=== PATIENT | male | born 1955 | race Caucasian/White ===

== ENCOUNTER 2016-06-21 17:06 | Inpatient (IN) ==
--- NOTE | 2016-06-21 17:16 | Emergency Department Note ---
Disposition Clinical Impression: Type 2 diabetes mellitus, uncontrolled Qualifiers: Diabetes mellitus complication status: without complication Diabetes mellitus director of logistics insulin use: without chcf use Qualified Code(s): E11.65 - Type 2 diabetes mellitus with hyperglycemia Disposition: Admitted As Inpatient Condition: Good Referrals: Shavonne Jenkins PRIVATE PILOT [Primary Care Provider] - Forms: Work/School Release, ED Satisfaction Letter Time of Disposition: 18:22 General Adult HPI - General Chief complaint: ED General Medical Stated complaint: high blood suger Time Seen by Provider: 06/21/16 17:10 Source: patient Mode of arrival: EMS Limitations: no limitations Nursing Notes Reviewed: Yes Vital Signs Reviewed: Yes - History of Present Illness HPI Narrative: 61-year-old white male transported by ambulance from his physician's office with an elevated blood sugar. He states his blood sugars been high for several days. He is a known diabetic on oral agents. He admits to being noncompliant with his diet, and states he has been eating "a lot of cookies and thinks that I am not supposed to be eating". No vomiting. No fever. No recent illness. He has been urinating frequently for the last week. His vision is chronically blurred but is no worse than usual. Onset (ago): day(s) (2) Pain Scale: 0 Worsens with: nothing Associated symptoms: Reports: denies other symptoms Treatments Prior to Arrival: none - Related Data Home Medications Medication Instructions Recorded Confirmed Fluticasone/Salmeterol [Advair 1 each IH QDPC 11/11/15 11/11/15 250-50 Diskus] Loratadine [Claritin] 10 mg PO DAILY 11/11/15 11/11/15 Metformin [Glucophage] 500 mg PO BIDWM 11/11/15 11/11/15 Amlodipine [Norvasc] 5 mg PO DAILY 06/21/16 06/21/16 CloNIDine HCl [Kapvay] 0.1 mg PO BID 06/21/16 06/21/16 Hydrochlorothiazide 25 mg PO DAILY 06/21/16 06/21/16 Previous Rx's Medication Instructions Recorded Lisinopril [Zestril] 40 mg PO DAILY #60 tablet 11/12/15 Warfarin [Coumadin] 7.5 mg PO DAILY@1800 #45 tablet 11/12/15 Allergies Allergy/AdvReac Type Severity Reaction Status Date / Time Penicillins [PCN] Allergy Rash Verified 11/09/15 12:08 All systems ED: reviewed and negative except as stated. Constitutional: Denies: fever, chills Eyes: Reports: vision change (Blurred vision chronic) ENT ED: Denies: ear pain, throat pain Cardiovascular: Denies: chest pain, palpitations Respiratory: Denies: cough, dyspnea Gastrointestinal: Denies: abdominal pain, nausea, vomiting Genitourinary: Reports: frequency. Denies: urgency, dysuria, hematuria Musculoskeletal: Denies: back pain Neurological: Reports: weakness. Denies: numbness, paresthesias Past Medical History - Past Medical History Medical history: Reports: diabetes, hypertension, valvular heart disease Surgical history: Reports: cataract, heart valve replacement Psychiatric history: Reports: anxiety - Social History Smoking Status: Former smoker Smokeless Tobacco Status: No Alcohol use: Reports: none Drug use: Reports: none Physical Exam - General Limitations: no limitations General appearance: alert, in no apparent distress, other (Thin emaciated) - Head Head exam: atraumatic, normocephalic - Eye Eye exam: Present: PERRL, EOMI. Absent: scleral icterus, conjunctival injection - ENT ENT exam: normal oropharynx, mucous membranes moist, TM's normal bilaterally - Neck Neck exam: Present: normal inspection, full ROM, trachea midline. Absent: lymphadenopathy - Chest Chest inspection: Present: normal inspection, symmetric chest wall rise - Respiratory Respiratory exam: Present: normal lung sounds bilaterally. Absent: respiratory distress, wheezes - Cardiovascular Cardiovascular exam: Present: regular rate, normal rhythm, normal heart sounds - Abdominal Exam Abdominal exam: Present: soft, Non-Tender, normal bowel sounds. Absent: organomegaly, mass - Extremities Exam Extremities exam: Present: normal inspection, full ROM, normal capillary refill. Absent: pedal edema, calf tenderness - Back Exam Back exam: Present: normal inspection. Absent: CVA tenderness (R), CVA tenderness (L) - Neurological Exam Neurological exam: Present: alert, oriented X3. Absent: motor sensory deficit - Psychiatric Psychiatric exam: Present: normal affect, normal mood - Skin Skin exam: Present: warm, dry, intact. Absent: cyanosis, diaphoresis Course - Reevaluation(s) Reevaluation #1: IV fluids were initiated on presentation. His blood sugar is now back. It is 750. His potassium is mildly elevated. I am going to give him 10 units of regular insulin IV. I will continue hydration. Because of the blood sugar level he will require observation, continued hydration and control of his blood sugars. I will contact the hospitalist to discuss observation admission. Time: 17:56 Reevaluation #2: Discussed with Dr. Treviño. He accepts the patient for admission. Time: 18:21 Vital Signs Temperature 98.4 F 06/21/16 17:08 Pulse Rate 79 06/21/16 17:08 Respiratory Rate 16 06/21/16 17:08 Blood Pressure 161/96 06/21/16 17:08 O2 Sat by Pulse Oximetry 100 06/21/16 17:08 Temperature 98.4 F 06/21/16 17:08 Pulse Rate 79 06/21/16 17:08 Respiratory Rate 16 06/21/16 17:08 Blood Pressure 161/96 06/21/16 17:08 O2 Sat by Pulse Oximetry 100 06/21/16 17:08 Oxygen Delivery Oxygen Delivery Room Air Medical Decision Making - Lab Data Result diagrams: 06/21/16 17:30 06/21/16 17:30 Lab Results 06/21/16 06/21/16 06/21/16 Range/Units 17:10 17:12 17:13 WBC (4.3-11.1) K/mcL RBC (4.19-5.50) M/mcL Hgb (12.9-16.9) g/dL Hct (37.5-50.1) % MCV (83.0-100.0) fL MCH (28.0-33.3) pg MCHC (31.6-35.5) g/dL RDW (11.5-14.5) % Plt Count (140-400) K/mcL MPV (9.4-12.4) fL Immature Gran % (0-4) % Seg Neutrophils % % Lymphocytes % % Monocytes % % Eosinophils % % Basophils % % Neutrophils # (1.6-8.9) K/mcL Lymphocytes # (0.6-4.6) K/mcL Monocytes # (0.0-1.3) K/mcL Eosinophils # (0.0-0.6) K/mcL Basophils # (0.0-0.2) K/mcL VBG pH 7.40 (7.32-7.42) pH Units VBG pCO2 47 (41-51) mmHg VBG pO2 29.2 (25-40) mmHg VBG HCO3 29.4 H (21-27) mEq/L Sodium (136-145) mEq/L Potassium (3.5-4.5) mEq/L Chloride (98-109) mEq/L Carbon Dioxide (19-29) mEq/L BUN (8-26) mg/dL Creatinine (0.72-1.25) mg/dL Est GFR ( Amer) (> 60) Est GFR (Non-Af Amer) (> 60) BUN/Creatinine Ratio (6-26) Glucose (70-99) mg/dL POC Glucose > 600 H* > 600 H* (58-89) Calculated Osmolality (280-300) Calcium (8.6-10.8) mg/dL Total Bilirubin (0.2-1.2) mg/dL AST (5-34) Units/L ALT (0-55) Units/L Alkaline Phosphatase (38-126) Units/L Troponin I (0-0.03) ng/mL Serum Total Protein (6.0-8.3) g/dL Albumin (3.5-5.0) g/dL Globulin (2.4-3.5) g/dL Albumin/Globulin Ratio (1.1-2.2) Beta-Hydroxybutyric Acd (0.02-0.27) mmol/L Urine Color (Yellow) Urine Clarity (Clear) Urine pH (5.0-8.0) pH Units Ur Specific [place] (1.010-1.025) Urine Protein (Neg-Trace) mg/dL Urine Glucose (UA) (Normal) mg/dL Urine Ketones (Negative) mg/dL Urine Blood (Negative) Urine Nitrite (Negative) Urine Bilirubin (Negative) Urine Urobilinogen (Normal) mg/dL Ur Leukocyte Esterase (Negative) Urine Microscopic RBC (0-3) per hpf Urine Microscopic WBC (0-3) per hpf Ur Squamous Epith Cells (None-Few) per lpf Ur Culture Indicated? (NO) 06/21/16 06/21/16 06/21/16 Range/Units 17:30 17:30 17:30 WBC 7.6 (4.3-11.1) K/mcL RBC 3.40 L (4.19-5.50) M/mcL Hgb 10.8 L (12.9-16.9) g/dL Hct 31.5 L (37.5-50.1) % MCV 92.6 (83.0-100.0) fL MCH 31.8 (28.0-33.3) pg MCHC 34.3 (31.6-35.5) g/dL RDW 13.3 (11.5-14.5) % Plt Count 283 (140-400) K/mcL MPV 10.4 (9.4-12.4) fL Immature Gran % 0.4 (0-4) % Seg Neutrophils % 78.4 % Lymphocytes % 13.8 % Monocytes % 6.6 % Eosinophils % 0.3 % Basophils % 0.5 % Neutrophils # 6.0 (1.6-8.9) K/mcL Lymphocytes # 1.1 (0.6-4.6) K/mcL Monocytes # 0.5 (0.0-1.3) K/mcL Eosinophils # 0.0 (0.0-0.6) K/mcL Basophils # 0.0 (0.0-0.2) K/mcL VBG pH (7.32-7.42) pH Units VBG pCO2 (41-51) mmHg VBG pO2 (25-40) mmHg VBG HCO3 (21-27) mEq/L Sodium 126 L (136-145) mEq/L Potassium 4.8 H (3.5-4.5) mEq/L Chloride 85 L (98-109) mEq/L Carbon Dioxide 27 (19-29) mEq/L BUN 22 (8-26) mg/dL Creatinine 1.57 H (0.72-1.25) mg/dL Est GFR ( Amer) 55 L (> 60) Est GFR (Non-Af Amer) 45 L (> 60) BUN/Creatinine Ratio 14 (6-26) Glucose 725 H* (70-99) mg/dL POC Glucose (58-89) Calculated Osmolality 300 (280-300) Calcium 9.5 (8.6-10.8) mg/dL Total Bilirubin 0.4 (0.2-1.2) mg/dL AST 55 H (5-34) Units/L ALT 60 H (0-55) Units/L Alkaline Phosphatase 113 (38-126) Units/L Troponin I 0.03 (0-0.03) ng/mL Serum Total Protein 7.0 (6.0-8.3) g/dL Albumin 3.5 (3.5-5.0) g/dL Globulin 3.5 (2.4-3.5) g/dL Albumin/Globulin Ratio 1.0 L (1.1-2.2) Beta-Hydroxybutyric Acd 0.46 H (0.02-0.27) mmol/L Urine Color (Yellow) Urine Clarity (Clear) Urine pH (5.0-8.0) pH Units Ur Specific [place] (1.010-1.025) Urine Protein (Neg-Trace) mg/dL Urine Glucose (UA) (Normal) mg/dL Urine Ketones (Negative) mg/dL Urine Blood (Negative) Urine Nitrite (Negative) Urine Bilirubin (Negative) Urine Urobilinogen (Normal) mg/dL Ur Leukocyte Esterase (Negative) Urine Microscopic RBC (0-3) per hpf Urine Microscopic WBC (0-3) per hpf Ur Squamous Epith Cells (None-Few) per lpf Ur Culture Indicated? (NO) 06/21/16 Range/Units 17:37 WBC (4.3-11.1) K/mcL RBC (4.19-5.50) M/mcL Hgb (12.9-16.9) g/dL Hct (37.5-50.1) % MCV (83.0-100.0) fL MCH (28.0-33.3) pg MCHC (31.6-35.5) g/dL RDW (11.5-14.5) % Plt Count (140-400) K/mcL MPV (9.4-12.4) fL Immature Gran % (0-4) % Seg Neutrophils % % Lymphocytes % % Monocytes % % Eosinophils % % Basophils % % Neutrophils # (1.6-8.9) K/mcL Lymphocytes # (0.6-4.6) K/mcL Monocytes # (0.0-1.3) K/mcL Eosinophils # (0.0-0.6) K/mcL Basophils # (0.0-0.2) K/mcL VBG pH (7.32-7.42) pH Units VBG pCO2 (41-51) mmHg VBG pO2 (25-40) mmHg VBG HCO3 (21-27) mEq/L Sodium (136-145) mEq/L Potassium (3.5-4.5) mEq/L Chloride (98-109) mEq/L Carbon Dioxide (19-29) mEq/L BUN (8-26) mg/dL Creatinine (0.72-1.25) mg/dL Est GFR ( Amer) (> 60) Est GFR (Non-Af Amer) (> 60) BUN/Creatinine Ratio (6-26) Glucose (70-99) mg/dL POC Glucose (58-89) Calculated Osmolality (280-300) Calcium (8.6-10.8) mg/dL Total Bilirubin (0.2-1.2) mg/dL AST (5-34) Units/L ALT (0-55) Units/L Alkaline Phosphatase (38-126) Units/L Troponin I (0-0.03) ng/mL Serum Total Protein (6.0-8.3) g/dL Albumin (3.5-5.0) g/dL Globulin (2.4-3.5) g/dL Albumin/Globulin Ratio (1.1-2.2) Beta-Hydroxybutyric Acd (0.02-0.27) mmol/L Urine Color Light Yellow (Yellow) Urine Clarity Cloudy A (Clear) Urine pH 7.0 (5.0-8.0) pH Units Ur Specific [place] 1.015 (1.010-1.025) Urine Protein Negative (Neg-Trace) mg/dL Urine Glucose (UA) >=1000 H (Normal) mg/dL Urine Ketones Negative (Negative) mg/dL Urine Blood Trace-intact H (Negative) Urine Nitrite Negative (Negative) Urine Bilirubin Negative (Negative) Urine Urobilinogen Normal (Normal) mg/dL Ur Leukocyte Esterase Small H (Negative) Urine Microscopic RBC 0-3 (0-3) per hpf Urine Microscopic WBC 30-50 H (0-3) per hpf Ur Squamous Epith Cells None Seen (None-Few) per lpf Ur Culture Indicated? YES A (NO) - EKG Data EKG #1 EKG attestation: Yes I reviewed and interpreted this EKG. EKG results narrative: Sinus rhythm, rate of 64, age undetermined septal infarct, lateral T wave inversion consistent with ischemia. Rhythm strip shows sinus rhythm with a rate of 64, P a Holter milliseconds, QRS 112 ms with no other ectopy as interpreted by me. Compared to a tracing dated 11/09/15, no significant change.
[2016-06-21] MEDS: 0.9 % Sodium Chloride 1,000 ML IVC SCH ×4 (17:22→19:37)
[2016-06-21 17:36] LABS: Basophils % 0.5 %; Eosinophils % 0.3 %; Hematocrit 31.5 % (37.5-50.1); Hemoglobin 10.8 g/dL (12.9-16.9); Immature Granulocytes % 0.4 % (0-4); Lymphocytes # 1.1 K/mcL (0.6-4.6); Lymphocytes % 13.8 %; Mean Corpuscular HGB Conc 34.3 g/dL (31.6-35.5); Mean Corpuscular Hemoglobin 31.8 pg (28.0-33.3); Mean Corpuscular Volume 92.6 fL (83.0-100.0); Mean Platelet Volume 10.4 fL (9.4-12.4); Monocytes # 0.5 K/mcL (0.0-1.3); Monocytes % 6.6 %; Platelet Count 283 K/mcL (140-400); Red Cell Distribution Width 13.3 % (11.5-14.5); Segmented Neutrophils % 78.4 %
[2016-06-21 17:42] LABS: Beta-Hydroxybutyric Acid 0.46 mmol/L (0.02-0.27)
[2016-06-21 17:44] LABS: VBG HCO3 29.4 mEq/L (21-27); VBG PH 7.4 pH Units (7.32-7.42); VBG PO2 29.2 mmHg (25-40)
[2016-06-21 17:45] LABS: Bilirubin,Urine Negative (Negative); Blood,Urine Trace-intact (Negative); Clarity,Urine Cloudy (Clear); Glucose,Urine (UA) >=1000 mg/dL (Normal); Ketones,Urine Negative (Negative); Leukocyte Esterase,Urine Small (Negative); Nitrite,Urine Negative (Negative); Protein,Urine Negative (Neg-Trace); Specific Gravity,Urine 1.015 (1.010-1.025); Urobilinogen,Urine Normal (Normal)
[2016-06-21 17:50] LABS: Color,Urine Light Yellow (Yellow)
[2016-06-21 17:54] LABS: Albumin 3.5 g/dL (3.5-5.0); Bilirubin,Total 0.4 mg/dL (0.2-1.2); Calcium 9.5 mg/dL (8.6-10.8); Globulin 3.5 g/dL (2.4-3.5); Potassium 4.8 mEq/L (3.5-4.5)
[2016-06-21 17:56] LABS: RBC,Urine 0-3 per hpf (0-3); WBC,Urine 30-50 per hpf (0-3)
[2016-06-21] MEDS ORDERED: Insulin Human Regular 10 UNIT in 0.9 % Sodium Chloride 10 ML IV ONE ×2 (17:56→19:04)
[2016-06-21 17:57] LABS: Squamous Epithelial Cell,Urine None Seen per lpf (None-Few)
[2016-06-21] MEDS ORDERED: D5% in Water 1,000 ML IV PRN (18:39)
[2016-06-21] MEDS ORDERED: Ondansetron ODT 4 MG TAB.RAPDIS SL PRN (18:39)
[2016-06-21] MEDS ORDERED: Dextrose Gel 15 GM PO PRN ×2 (18:39)
[2016-06-21] MEDS ORDERED: Naloxone 0.4 MG/ML INJ IVP PRN (18:39)
[2016-06-21] MEDS ORDERED: *HR* Dextrose 50 % in Water (Syg) 50 ML SYRINGE IVP PRN (18:39)
[2016-06-21 18:48] LABS: INR 1.2; Prothrombin Time 13.4 Seconds (9.4-12.1)
[2016-06-21 20:44] LABS: Estimated Average Glucose > 355 mg/dl; Hemoglobin A1C >= 14.1 %
[2016-06-22] MEDS: 0.9 % Sodium Chloride 1,000 ML IVC SCH ×2 (02:26→13:05)
[2016-06-22] MEDS: Insulin LISPRO 300 UNITS/3 ML VIAL SQ SCH ×3 (07:41→18:28)
[2016-06-22] MEDS ORDERED: *HR* Metformin 500 MG TABLET PO SCH (08:00)
[2016-06-22] MEDS ORDERED: Loratadine 10 MG TABLET PO SCH (09:00)
[2016-06-22] MEDS ORDERED: Lisinopril 20 MG TABLET PO SCH (09:00)
--- NOTE | 2016-06-22 09:04 | Electrocardiograph Report ---
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
[2016-06-22] MEDS ORDERED: Budesonide/Formoterol 80/4.5 MDI IH SCH ×2 (10:00→22:00)
--- NOTE | 2016-06-22 11:33 | Internal Med History&Physical ---
Date of Encounter: 06/22/16 Time of Encounter: 11:00 Assessment and Plan (1) Type 2 diabetes mellitus, uncontrolled Current visit: Yes Status: Acute He has been started on IV insulin. Glucophage will be held because of renal insufficiency. Accu-Cheks with SSI will be given with basal insulin started. Qualifiers: Diabetes mellitus complication status: with kidney complications Diabetes mellitus complication detail: with chronic kidney disease Diabetes mellitus long term care pharmacist insulin use: without long term care pharmacist use Chronic kidney disease stage: stage 3 (moderate) Qualified Code(s): E11.22 - Type 2 diabetes mellitus with diabetic chronic kidney disease; E11.65 - Type 2 diabetes mellitus with hyperglycemia; N18.3 - Chronic kidney disease, stage 3 (moderate) (2) Anemia Current visit: Yes Status: Acute Will order anemia testing in a.m. Qualifiers: Anemia type: unspecified type Qualified Code(s): D64.9 - Anemia, unspecified (3) Hyponatremia Current visit: Yes Status: Acute Suspect pseudohyponatremia from hyperglycemia. We will IV fluids and monitor blood sugars. Recheck labs in a.m. (4) Azotemia Current visit: Yes Status: Acute Hold lisinopril and hydrochlorothiazide. Will give IV fluids and recheck labs in a.m. (5) Elevated transaminase level Current visit: Yes Status: Acute Recheck labs in a.m. (6) UTI (urinary tract infection) Current visit: Yes Status: Acute We will order urine culture and start Cipro empirically Qualifiers: Urinary tract infection type: site unspecified Hematuria presence: without hematuria Qualified Code(s): N39.0 - Urinary tract infection, site not specified (7) H/O mechanical aortic valve replacement Current visit: No Status: Chronic We will give therapeutic dose of Lovenox every 12 hours until INR therapeutic. Internal Medicine - H&P: HPI Chief complaint: Hyperglycemia Admitted From: Home Plans for Post Hospital Care: Home History of present illness: Mr. Wheeler is a 61 year old male who was sent from his PCP office to emergency room because of hyperglycemia. He reports his blood sugar readings had been "high" on his home meter for several days. In the emergency room his blood sugar was found to be 725 mg percent. He was admitted to [facility] floor for ongoing care needs. He was diagnosed with DM 2 in 2012. He admits he has not been following his diet closely and has been eating a large amount of fruit. The emergency room record also reported he had been eating cookies. Endocrine history is pertinent otherwise for hyperlipidemia but available archived records show no lipid profile. He denies thyroid disease. Past Med Surg Social Fam HX - Past Medical History Medical history: COPD, diabetes, hypertension, valvular heart disease, other Psychiatric history: anxiety - Past Surgical History Surgical History: cataract, heart valve replacement, other - Social History Smoking Status: Former smoker Smokeless Tobacco Status: No Alcohol use: none Drug use: none Internal Medicine - H&P: Meds Fluticasone/Salmeterol [Advair 250-50 Diskus] 1 each IH QDPC 11/11/15 [History] Loratadine [Claritin] 10 mg PO DAILY 11/11/15 [History] Metformin [Glucophage] 500 mg PO BIDWM 11/11/15 [History] Lisinopril [Zestril] 40 mg PO DAILY #60 tablet 11/12/15 [Rx] Warfarin [Coumadin] 7.5 mg PO DAILY@1800 #45 tablet 11/12/15 [Rx] Amlodipine [Norvasc] 5 mg PO DAILY 06/21/16 [History] CloNIDine HCl [Kapvay] 0.1 mg PO BID 06/21/16 [History] Hydrochlorothiazide 25 mg PO DAILY 06/21/16 [History] Allergies Penicillins [PCN] Allergy (Verified 11/09/15 12:08) Rash All Systems PM: A 10-system review of systems was performed and is negative for pertinent findings except as documented above in the HPI. Review of systems: Review of systems from his October 2015 [facility] hospitalization were reviewed and revised as below Gen.: His weight has decreased from 65.771 kg at October 2015 hospitalization to admission weight of 53.977 kg at present Cardiovascular: Has history of hypertension but denies [place] heart failure DVT or pulmonary embolus. He had mechanical valve placement 2002 and is on lifelong Coumadin. He claims he had a heart catheter 2002 which was unremarkable. Respiratory: He smoked from age [age] up to 1-1/2 packs per day. He has a diagnosis COPD. He claims he has asthma. He does not use home oxygen. GI: Denies disorders of his liver gallbladder or exocrine pancreas : Denies hematuria dysuria or kidney stones Neurologic: He denies large distribution strokes or seizures Endocrine: As per history of present illness. Hematology/oncology: He denies blood disorders cancers or anemia Psychiatric: He denies anxiety depression or other mental health issues [place] skeletal: Denies arthritis gout or other bone joint or muscle disorders. - Constitutional Vitals: Temp Pulse Resp BP Pulse Ox 97.5 F L 55 14 110/65 98 06/22/16 10:51 06/22/16 10:51 06/22/16 10:51 06/22/16 10:51 06/22/16 10:51 Exam: Gen.: He is a well-developed lean male who appears in no severe distress at present time. HEENT: Head is atraumatic and normocephalic. Eyes: EOMI. There is no scleral icterus. Mouth: Mucosa is moist. Neck: Supple and nontender. There is no thyromegaly or adenopathy noted. Heart: Regular without murmurs gallops or ectopics.: Mechanical valve sounds are heard. Lungs: No wheezes or crackles are heard. Abdomen: Soft and nontender. No masses or guarding are noted. Extremities: There is no cyanosis edema or clubbing noted. Dorsalis pedis and posterior tibial pulses are trace palpable bilaterally. Neurologic: Mental status: He is talkative and a good historian. Cranial nerves : Smile is symmetric. Forehead wrinkles bilaterally. Tongue protrudes midline. EOMI. Motor: There is no pronator drift. Cerebellar: Finger to nose is intact bilaterally. Skin: Warm and or Internal Med - H&P Results - Labs CBC & Chem 7: 06/21/16 17:30 06/21/16 17:30 - VTE Reasons for not Prescribing Prophylaxis: Not indicated-Anticoagulated or INR therapeutic
[2016-06-22] MEDS ORDERED: Insulin DETEMIR 100 UNIT/ML X5UNITS SQ SCH (12:00)
[2016-06-22] MEDS ORDERED: *HR* Enoxaparin 80 MG/0.8 ML SYRINGE SQ SCH (12:00)
[2016-06-22] MEDS: *HR* Warfarin 5 MG TABLET PO SCH (18:28)
[2016-06-22] MEDS: *HR* Enoxaparin 100 MG/ML SYRINGE SQ SCH (18:31)
[2016-06-22] MEDS: Insulin DETEMIR 100 UNIT/ML X5UNITS SQ SCH (20:11)
[2016-06-23] MEDS: 0.9 % Sodium Chloride 1,000 ML IVC SCH ×2 (00:06→08:29)
[2016-06-23 05:42] LABS: Basophils # 0.1 K/mcL (0.0-0.2); Basophils % 0.8 %; Eosinophils # 0.2 K/mcL (0.0-0.6); Eosinophils % 2.1 %; Hematocrit 29.7 % (37.5-50.1); Hemoglobin 9.9 g/dL (12.9-16.9); Immature Granulocytes % 0.5 % (0-4); Lymphocytes # 1.9 K/mcL (0.6-4.6); Lymphocytes % 24.4 %; Mean Corpuscular HGB Conc 33.3 g/dL (31.6-35.5); Mean Corpuscular Volume 93.1 fL (83.0-100.0); Mean Platelet Volume 10.4 fL (9.4-12.4); Monocytes # 0.7 K/mcL (0.0-1.3); Neutrophils # 4.8 K/mcL (1.6-8.9); Platelet Count 276 K/mcL (140-400); Red Blood Count 3.19 M/mcL (4.19-5.50); Red Cell Distribution Width 13.6 % (11.5-14.5); Segmented Neutrophils % 63.2 %
[2016-06-23 06:00] LABS: Alanine Aminotransferase 49 Units/L (0-55); Albumin 2.8 g/dL (3.5-5.0); Alkaline Phosphatase 82 Units/L (38-126); Aspartate Amino Transferase 43 Units/L (5-34); BUN/Creatinine Ratio 20 (6-26); Bilirubin,Total 0.2 mg/dL (0.2-1.2); Blood Urea Nitrogen 18 mg/dL (8-26); Calcium 8.9 mg/dL (8.6-10.8); Carbon Dioxide 22 mEq/L (19-29); Chloride 104 mEq/L (98-109); Globulin 2.8 g/dL (2.4-3.5); Glucose 71 mg/dL (70-99); Magnesium 1.9 mg/dL (1.6-2.6); Osmolality,Calculated 286 (280-300); Potassium 3.6 mEq/L (3.5-4.5); Sodium 138 mEq/L (136-145); Total Protein 5.6 g/dL (6.0-8.3); eGFR For African Americans > 60 (> 60); eGFR For Non-African Americans > 60 (> 60)
[2016-06-23 06:13] LABS: INR 1.2; Prothrombin Time 13.1 Seconds (9.4-12.1)
[2016-06-23] MEDS: *HR* Enoxaparin 100 MG/ML SYRINGE SQ SCH ×2 (06:56→17:47)
[2016-06-23] MEDS: Insulin LISPRO 300 UNITS/3 ML VIAL SQ SCH ×2 (07:58→09:22)
[2016-06-23] MEDS: Insulin DETEMIR 100 UNIT/ML X5UNITS SQ SCH (09:16)
[2016-06-23 09:37] LABS: % Iron Saturation 22 % (20-55); Iron 46 mcg/dL (65-175); Transferrin 152 mg/dL (174-364)
--- NOTE | 2016-06-23 10:20 | Internal Med Progress Note ---
Date of Encounter: 06/23/16 Time of Encounter: 10:10 - Assessment and plan (1) Type 2 diabetes mellitus, uncontrolled Current Visit: Yes Status: Acute Assessment and plan: June 23. Blood sugars are significantly improved. Restart Glucophage since azotemia has resolved and add low-dose glimepiride. Continue Accu-Cheks with SSI. Qualifiers: Diabetes mellitus complication status: with kidney complications Diabetes mellitus complication detail: with chronic kidney disease Diabetes mellitus extermination supervisor insulin use: without retirement use Chronic kidney disease stage: stage 3 (moderate) Qualified Code(s): E11.22 - Type 2 diabetes mellitus with diabetic chronic kidney disease; E11.65 - Type 2 diabetes mellitus with hyperglycemia; N18.3 - Chronic kidney disease, stage 3 (moderate) (2) Anemia Current Visit: Yes Status: Acute Assessment and plan: June 23. Anemia testing is pending Qualifiers: Anemia type: unspecified type Qualified Code(s): D64.9 - Anemia, unspecified (3) Hyponatremia Current Visit: Yes Status: Acute Assessment and plan: June 23. Resolved with normalization of blood sugar. (4) Azotemia Current Visit: Yes Status: Acute Assessment and plan: June 23. Resolved. Remain off lisinopril and HCTZ. We will discontinue IV fluids. (5) Elevated transaminase level Current Visit: Yes Status: Acute Assessment and plan: June 23. Resolving. Continue present management (6) UTI (urinary tract infection) Current Visit: Yes Status: Acute Assessment and plan: June 23. Urine culture showed mixed organisms. We will not continue antibiotics after discharge. Qualifiers: Urinary tract infection type: site unspecified Hematuria presence: without hematuria Qualified Code(s): N39.0 - Urinary tract infection, site not specified (7) H/O mechanical aortic valve replacement Current Visit: No Status: Chronic Assessment and plan: June 23. Continue Lovenox and Coumadin with monitoring of INR. - Subjective Interval history: June 23. He has no new complaints and feels better - Constitutional Vitals: Temp Pulse Resp BP Pulse Ox 98.3 F 54 16 117/74 99 06/23/16 07:05 06/23/16 07:05 06/23/16 07:05 06/23/16 07:05 06/23/16 07:05 Exam: He is resting comfortably in bed. His affect is bright and cheerful. I reviewed his medications and lab results. Internal Medicine: Result - Labs CBC & Chem 7: 06/23/16 04:23 06/23/16 04:23 Labs: Short CBC 06/23/16 Range/Units 04:23 WBC 7.6 (4.3-11.1) K/mcL Hgb 9.9 L (12.9-16.9) g/dL Hct 29.7 L (37.5-50.1) % Plt Count 276 (140-400) K/mcL Neutrophils # 4.8 (1.6-8.9) K/mcL BMP 06/23/16 04:23 Sodium 138 D Potassium 3.6 D Chloride 104 D Carbon Dioxide 22 BUN 18 Creatinine 0.88 Glucose 71 Calcium 8.9 Liver Function 06/23/16 Range/Units 04:23 Total Bilirubin 0.2 (0.2-1.2) mg/dL AST 43 H (5-34) Units/L ALT 49 (0-55) Units/L Alkaline Phosphatase 82 (38-126) Units/L Albumin 2.8 L (3.5-5.0) g/dL - ABG Interpretation ABG results: PT/INR, D-dimer PT 13.1 Seconds (9.4-12.1) H 06/23/16 04:23 - VTE Reasons for not Prescribing Prophylaxis: Not indicated-Anticoagulated or INR therapeutic Consult Discharge Plan - Plan Referrals: Shavonne Jenkins, DIGITAL ADVERTISING ANALYST [Primary Care Provider] - 1 week
[2016-06-23 10:23] LABS: Ferritin 290 ng/ml (22-275)
[2016-06-23 10:39] LABS: Folate 9.3 ng/mL (7.0-31.4)
[2016-06-23] MEDS: *HR* Glimepiride 2 MG TABLET PO SCH (11:51)
[2016-06-23] MEDS: *HR* Metformin 500 MG TABLET PO SCH (15:43)
[2016-06-23] MEDS: *HR* Warfarin 5 MG TABLET PO SCH (17:44)
[2016-06-24] MEDS: *HR* Enoxaparin 100 MG/ML SYRINGE SQ SCH (05:39)
[2016-06-24 07:22] VITALS: BP 155/98
[2016-06-24 07:55] LABS: Basophils # 0.1 K/mcL (0.0-0.2); Basophils % 0.8 %; Eosinophils # 0.2 K/mcL (0.0-0.6); Eosinophils % 3.3 %; Hematocrit 30.7 % (37.5-50.1); Hemoglobin 10.4 g/dL (12.9-16.9); Immature Granulocytes % 0.9 % (0-4); Lymphocytes # 1.8 K/mcL (0.6-4.6); Lymphocytes % 27.3 %; Mean Corpuscular HGB Conc 33.9 g/dL (31.6-35.5); Mean Corpuscular Hemoglobin 31.7 pg (28.0-33.3); Mean Corpuscular Volume 93.6 fL (83.0-100.0); Mean Platelet Volume 10.2 fL (9.4-12.4); Monocytes # 0.5 K/mcL (0.0-1.3); Monocytes % 7.8 %; Neutrophils # 3.9 K/mcL (1.6-8.9); Platelet Count 281 K/mcL (140-400); Red Blood Count 3.28 M/mcL (4.19-5.50); Segmented Neutrophils % 59.9 %
[2016-06-24 07:56] LABS: INR 1.3; Prothrombin Time 14.4 Seconds (9.4-12.1)
--- NOTE | 2016-06-24 08:41 | Discharge Summary ---
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 home use Chronic kidney disease stage: stage 3 (moderate) Qualified Code(s): E11.22 - Type 2 diabetes mellitus with diabetic chronic kidney disease; E11.65 - Type 2 diabetes mellitus with hyperglycemia; N18.3 - Chronic kidney disease, stage 3 (moderate) (2) Anemia Priority: Secondary Status: Acute Qualifiers: Anemia type: unspecified type Qualified Code(s): D64.9 - Anemia, unspecified (3) Hyponatremia Priority: Secondary Status: Resolved (4) Azotemia Priority: Secondary Status: Resolved (5) Elevated transaminase level Priority: Secondary Status: Resolved (6) UTI (urinary tract infection) Priority: Secondary Status: Acute Qualifiers: Urinary tract infection type: site unspecified Hematuria presence: without hematuria Qualified Code(s): N39.0 - Urinary tract infection, site not specified (7) H/O mechanical aortic valve replacement Priority: Secondary Status: Chronic - Discharge Medications Prescriptions: Glimepiride [Amaryl] 1 mg PO 0800 #15 tablet Metformin [Glucophage] 1,000 mg PO BIDWM #120 tablet Home Medications: Fluticasone/Salmeterol [Advair 250-50 Diskus] 1 each IH QDPC 11/11/15 [History] Warfarin [Coumadin] 7.5 mg PO DAILY@1800 #45 tablet 11/12/15 [Rx] Amlodipine [Norvasc] 5 mg PO DAILY 06/21/16 [History] CloNIDine HCl [Kapvay] 0.1 mg PO BID 06/21/16 [History] Glimepiride [Amaryl] 1 mg PO 0800 #15 tablet 06/24/16 [Rx] Loratadine [Claritin] 10 mg PO DAILY PRN #0 06/24/16 [Rx] Metformin [Glucophage] 1,000 mg PO BIDWM #120 tablet 06/24/16 [Rx] Allergies/Adverse Reactions: Allergies Penicillins [PCN] Allergy (Verified 11/09/15 12:08) Rash Date of admission: 06/22/16 15:24 Primary care physician: Shavonne Jenkins CNP - Patient Status Disposition: Home, Self-Care Condition: Good Overall status at discharge: patient is progressing back to baseline - Discharge Instructions Follow Up With: Shavonne Jenkins CNP [Primary Care Provider] - 1 week - Diet and Activity Activity: resume usual activities as tolerated Diet: diabetic diet Hospital course: Mr. Wheeler is a 61 year old male who was sent from his PCP office to emergency room because of hyperglycemia. He reports his blood sugar readings had been "high" on his home meter for several days. In the emergency room his blood sugar was found to be 725 mg percent. He was admitted to [facility] for ongoing care needs. Initial orders were written by the emergency room physician. I saw him on June 22 and performed the history and physical. He was given IV fluids and insulin. His sugars returned to a satisfactory range area Glucophage was restarted when renal insufficiency resolved. The dose was increased to thousand milligrams twice a day. Glimepiride 1 mg daily was also added. He will continue this regimen at home. Anemia testing showed no factor deficiency. Hyponatremia resolved with normalization of blood sugar. Urine culture showed mixed organisms. He was given Cipro during his hospital stay but this will not be continued at discharge. Liver transaminase levels returned to normal range prior to discharge. His INR had risen to 1.3 the day of discharge. I will his PCP continue to monitor this and adjust Coumadin dose as needed. On June 24 he was stable for discharge home. He will follow with his PCP Shavonne Jenkins CNP within 1 week. - Time Spent with Patient Total time spent providing and/or coordinating discharge services: - Constitutional Vitals: Temp Pulse Resp BP Pulse Ox 98.3 F 50 16 155/98 98 06/24/16 07:00 06/24/16 07:00 06/24/16 07:00 06/24/16 07:00 06/24/16 07:00 - VTE Reasons for not Prescribing Prophylaxis: Not indicated-Anticoagulated or INR therapeutic
[2016-06-24] MEDS: *HR* Glimepiride 2 MG TABLET PO SCH (09:06)
[2016-06-24] MEDS: *HR* Metformin 500 MG TABLET PO SCH (09:06)
[2016-06-24 09:10] LABS: BUN/Creatinine Ratio 14 (6-26); Blood Urea Nitrogen 14 mg/dL (8-26); Carbon Dioxide 25 mEq/L (19-29); Chloride 104 mEq/L (98-109); Glucose 146 mg/dL (70-99); Osmolality,Calculated 289 (280-300); Potassium 4.7 mEq/L (3.5-4.5); Sodium 138 mEq/L (136-145); eGFR For African Americans > 60 (> 60); eGFR For Non-African Americans > 60 (> 60)
[2016-06-24] MEDS ORDERED: FLU VACC QS2016-17 36MOS UP/PF 0.5 ML SYRINGE IM ONE (09:13)
== END 2016-06-24 11:05 | disposition home or self-care (01) | DRG 420 ==
LOC: EMEROOPIK 17:06 → INPPIK 17:06
PROVIDERS: ADMIT Internal Medicine; ATTEND Internal Medicine